=== PATIENT | male | born 1970 | race Caucasian/White ===

== ENCOUNTER → 2019-02-17 | Outpatient (CLI) | payer SELFPAY ==
[~2019-02-17] MED LIST: AMBIEN 5MG TABLE5 MG PO; AMLODIPINE5 MG PO; ASPIRIN 81M81 MG/TA2 PO; BYSTOLIC10 MG PO; CARDI-OMEGA1000 MG PO; CO Q-1010 MG PO; GARLIC500 M2 PO; HCTZ 25MG25 MG PO; HTN med; NIACIN50 MG PO; NITROSTAT0.4 MG/TAB SL; NORCO 325 MG-51 TAB PO; NORCO 325 MG-7.1 TAB PO; PEPCID 20MG TAB20 MG PO; TAMBOCOR150 MG PO; ZOCOR 20MG20 MG PO; ZOCOR40 MG PO
== END ==
LOC: COL.LAB 16:37
DX: I25.119 Atherosclerotic heart disease of native coronary artery with unspecified angina pectoris (principal); R05 Cough